=== PATIENT | female | born 1985 ===

== ENCOUNTER → 2019-03-03 21:44 | Outpatient (REF) | payer OTHER, SELFPAY ==
[2019-03-06 10:39] LABS: RPR Screen Nonreactive (Nonreactive)
== END ==
LOC: LAB 21:44
PROVIDERS: Visit Provider Family Medicine
DX: Z11.1 Encounter for screening for respiratory tuberculosis (principal); Z11.3 Encounter for screening for infections with a predominantly sexual mode of transmission
CPT/HCPCS: 36415; 86592; 87591